=== PATIENT | female | born 1995 | race Caucasian/White ===

== ENCOUNTER 2018-07-17 06:41 | Inpatient (IN) ==
[~2018-07-17 06:41] MED LIST: *HR* Nalbuphine 10 MG/ML AMPUL IVP PRN; Famotidine 20 MG/2 ML VIAL IVP PRN; Metoclopramide 10 MG/2 ML VIAL IVP PRN; Naloxone 0.4 MG/ML INJ IVP PRN; miSOPROStol 25 MCG TABLET PO PRN
--- NOTE | 2018-07-17 07:17 | OB/GYN History & Physical ---
Date of Encounter: 07/17/18 Time of Encounter: 07:15 Assessment and Plan (1) 40 weeks gestation of Current visit: Yes Status: Acute Admit for elective induction of labor at 40w2d Options for induction with Cytotec, cervical srivastava balloon, AROM, and Pitocin all discussed with patient. She would like to proceed with Cytotec at this time. Patient desires a natural labor without IV pain medication or epidural. Prefers to be as mobile as possible. Anticipate (2) NST (non-stress test) reactive Current visit: Yes Status: Acute 140 bpm moderate variability, +15x15 accels, no decels. History of Present Illness Chief complaint: Labor evaluation HPI: Ms. Beasley is a 22 year old female at 40w 2d who presents with complaints of contractions all evening that have progressively gotten closer together and more intense. She denies fluid leakage and vaginal bleeding but does report losing her mucous plug shortly after she arrived. She does report positive movement. Blood type O+ GBS negative Rubella Immune HbSAG negative T. Pall negative Varicella Immune HIV negative Hep C neg Past Med Surg Social Fam HX - Past Medical History Medical history: no medical history Psychiatric history: no psych history - Past Surgical History Additional surgical history: umbilical surgery repair - Social History Smoking Status: Never smoker Smokeless Tobacco Status: No Alcohol use: none Drug use: none Current living situation: Home - Independent, With Family Activity Level: Independent ambulation Recent Out of Country Travel Within the Last 8 Weeks: No Exposure or Possible Exposure to Illness During Travel: No - Family History Mother Family Member Ethnicity: Non- Living Status: Still Living Hx Family Cardiac Disorders: No Hx Family Cancer: No Hx Family Genitourinary Disorders: No Hx Family Endocrine Disorder: No Hx Family Musculoskeletal Disorders: No Hx Family Neuromuscular Disorders: No Hx Family Neurologic Disorders: No Hx Family HEENT Disorders: No Hx Family Autoimmune Disorders: No Hx Family Reproductive Disorders: No Hx Family Psychosocial Disorders: No Hx Family Medical Disorders: No Obstetrical History - Pregnancies : 1 Para: 0 Term: 0 : 0 Ab's: 0 Livin Medications and Allergies Pnv No.95/Ferrous Fum/Folic AC [ Caplet] 1 each PO 07/17/18 [History] Allergy/AdvReac Type Severity Reaction Status Date / Time No Known Allergies Allergy Verified 07/17/18 05:21 Exam - Constitutional Constitutional: well developed, well nourished, no acute distress, average body habitus - HEENT HEENT: Normocephaly - Neck Neck exam: full ROM, normal inspection - Lungs Respiratory exam: CTAB - Cardiovascular Cardiovascular exam: RRR, +S1, +S2 - Breasts Breast: bilateral: normal - Abdomen Abdomen: Present: bowel sounds normal, gravid, non tender - Extremities Extremities exam: full ROM, normal capillary refill, normal inspection - Vulva Vulva: bilateral: normal - Vagina Vagina: Present: normal moisture - Cervix Dilation: 2 (2.5) Effacement: 80 (per RN exam) Results Result Diagrams: 07/17/18 07:35 All other labs normal. - VTE Reasons for not Prescribing Prophylaxis: Treatment not Indicated - Low risk for VTE
[2018-07-17 07:57] LABS: Hematocrit 37.5 % (35.3-44.9); Hemoglobin 12.8 g/dL (11.5-15.4); Red Blood Count 4.13 M/mcL (3.82-4.97)
[2018-07-17 07:58] LABS: Basophils # 0.1 K/mcL (0.0-0.2); Basophils % 0.3 %; Eosinophils # 0.2 K/mcL (0.0-0.6); Eosinophils % 1.3 %; Immature Granulocytes % 0.5 % (0-4); Lymphocytes # 2.5 K/mcL (0.6-4.6); Lymphocytes % 15.1 %; Mean Corpuscular HGB Conc 34.1 g/dL (31.6-35.5); Mean Corpuscular Volume 90.8 fL (83.0-100.0); Mean Platelet Volume 11.2 fL (9.4-12.4); Monocytes # 1.4 K/mcL (0.0-1.3); Monocytes % 8.5 %; Neutrophils # 12.2 K/mcL (1.6-8.9); Platelet Count 274 K/mcL (140-400); Red Cell Distribution Width 13.3 % (11.5-14.5); Segmented Neutrophils % 74.3 %
--- NOTE | 2018-07-17 12:33 | OB Labor Progress Note ---
Date of Encounter: 07/17/18 Time of Encounter: 12:31 Labor Progress Note - Subjective Subjective: Patient resting comfortably in bed. Requesting intracervical srivastava. - Vital Signs Vital Signs: VSS - Cervix Cervix: 2-3/85/-2 posterior - Heart Tones Heart Tones: 155 Cat 1 tacing - [place]: Irregular contractions averaging 3-8 minutes apart - Interventions Interventions: Cook's catheter placed without difficulty; patient and fetus tolerated well. 60cc uterine; 40cc vaginal - Plan Physician notified: No Plan: Continue routine labor management GBS negative Patient requesting low intervention IOL Consider AROM after srivastava displacement Anticipate vaginal delivery POC per consult with Dr Marrero
[2018-07-17] MEDS: Ondansetron 4 MG/2 ML VIAL IVP PRN (12:58)
[2018-07-17] MEDS ORDERED: Ringers Solution, Lactated 1,000 ML ONE (13:41)
[2018-07-17] MEDS ORDERED: Ringers Solution, Lactated 1,000 ML IVC SCH (13:45)
[2018-07-17] MEDS ORDERED: Lidocaine -MPF 2% 5 ML VIAL ONE (13:55)
[2018-07-17] MEDS ORDERED: Epidural Premix (fent/bupiv) 110 ML EP ONE ×2 (14:30→19:28)
--- NOTE | 2018-07-17 14:35 | Anesthesia Procedures ---
Addendum entered and electronically signed by Romulo Marquez CRNA 07/18/18 11:53: Delivery Date: 07/18/18 Infant Delivery Time: 09:39 Original Note: Date of Encounter: 07/17/18 Time of Encounter: 14:08 Procedures: Anesthesia - Epidural/Spinal Patient ID/Chart reviewed: Yes Patient examined: Yes OB Eval: Gestational age: term OB Eval: : 1 OB Eval: Contractions: Non-stressed pattern Consent Obtained: Yes Supplemental Oxygen: None/Room Air Site Prep: Aseptic Technique, Sterile prep and drape, 0.5% Chlorhexidine/Alcohol Patient position: upright Local Anesthetic: Lidocaine 1% Amount of Local Anesthetic used: 2 Touhy Needle Gauge: 18 Touhy Needle Depth (cm): 8 Catheter Depth at Skin (cm): 12 Test Dose (1.5% Lido + Epi): Volume given (mls): 4 Test Dose Result: Negative Loading Dose: Other: 10ml from solution Loading Dose Administered: Thru Catheter Infusion Med: 0.125% Bupivacaine w/ 2 mcg/ml Fentanyl Infusion Rate (mls/hr): [address]: Tegaderm, Tape Interspace Used: L3-L4 Loss of Resistance (LLOYD): Yes (saline) Blood: No CSF: No Paresthesia: No Procedure: vss though out procedure, FHR stable per RN's, L3-4 did not go, moved down to L4-5 to LLOYD. pablito well.
--- NOTE | 2018-07-17 14:37 | Anesthesia Evaluation PreOp ---
Date of Encounter: 07/17/18 Time of Encounter: 14:04 - Past History Planned Operation: Del, G1 induction Cardiac History: Denies any Significant Hx Pulmonary History: Denies Any Significant HX ATOMIC FUEL ASSEMBLER History: Denies Any Significant HX Other Medical History: Denies Any Significant HX Anesthesia History: No Prior Anesthetic Complications, Past Anesthesia (no family hx, had umbilical hernia repair without comp.) Alcohol Use: none Drug use: none Medications and Allergies Pnv No.95/Ferrous Fum/Folic AC [ Caplet] 1 each PO 07/17/18 [History] Allergy/AdvReac Type Severity Reaction Status Date / Time No Known Allergies Allergy Verified 07/17/18 05:21 Anesthesia Results - Labs 07/17/18 07:35 Anesthesia Exam - HEENT Pupil (Motor): Pupils equal Mallampati: II Teeth: Normal Oral Opening: Greater than 3 - ATOMIC FUEL ASSEMBLER LOC: Oriented ATOMIC FUEL ASSEMBLER Motor: Normal RUE, Normal LUE, Normal RLE, Normal LLE, Normal Face ATOMIC FUEL ASSEMBLER Sensory: Normal: RUE, LUE, RLE, LLE, Face - Cardiac Rhythm: Regular Murmur: None - Pulmonary Breath Sounds: bilateral Clear Respiratory Effort: Symmetrical Anesthesia Assess/Plan ASA Score: 2 Level of consciousness: Cooperative, Oriented Anesthetic Plan: General, Spinal, Epidural Monitoring Plan: Standard Monitors Recovery Plan: PACU
--- NOTE | 2018-07-17 16:59 | OB Labor Progress Note ---
Date of Encounter: 07/17/18 Time of Encounter: 16:56 Labor Progress Note - Subjective Subjective: Patient resting comfortably in bed on peanut ball. Epidural in place and providing pain control for patient. - Vital Signs Vital Signs: VSS - Cervix Cervix: 8/90/-1 - Heart Tones Heart Tones: 135 Cat 1 tracing - [place]: Contractions every 3-5 minutes - Interventions Interventions: Cook's catheter removed without difficulty. AROM for moderate amount of clear fluid; patient and fetus tolerated well. - Plan Physician notified: No Plan: Continue routine labor management GBS negative Consider pitocin for augmentation Anticipate vaginal delivery POC per consult with Dr Marrero
--- NOTE | 2018-07-17 19:44 | OB Labor Progress Note ---
Date of Encounter: 07/17/18 Time of Encounter: 19:42 Labor Progress Note - Subjective Subjective: Patient resting in bed comfortably - Vital Signs Vital Signs: VSS - Cervix Cervix: 7/90/-1 - Heart Tones Heart Tones: 135 Cat 2 tracing; variables with occasional contraction; moderate variability - [place]: Contractions every 2 to 3 minutes - Interventions Interventions: FSE placed without difficulty; fetus and patient tolerated well
[2018-07-17] MEDS ORDERED: Oxytocin 20 units/ LR 1000 mL 20 UNIT/1,000 ML BAG IVC SCH (21:15)
[2018-07-17] MEDS ORDERED: Oxytocin 20 units/ LR 1000 mL 20 UNIT/1,000 ML BAG IVC ONE (21:17)
[2018-07-18] MEDS ORDERED: Acetaminophen 325 MG TABLET PO PRN ×2 (01:01→11:15)
[2018-07-18] MEDS ORDERED: *HR* Ropivacaine/PF 0.5% 20 ML VIAL ONE ×2 (01:35→07:38)
--- NOTE | 2018-07-18 01:53 | Anesthesia Progress Note ---
Date of Encounter: 07/18/18 Time of Encounter: 01:41 Anesthesia Note - Note Note: 07/18/18 01:52 BOLUS 6ML 0.5% ROP FOR CONTRACTION DISCOMFORT.
[2018-07-18] MEDS ORDERED: Epidural Premix (fent/bupiv) 110 ML EP ONE (03:01)
[2018-07-18] MEDS ORDERED: *HR* FentaNYL (PF) 100 MCG/2 ML VIAL ONE (07:38)
--- NOTE | 2018-07-18 07:44 | Anesthesia Progress Note ---
Date of Encounter: 07/18/18 Time of Encounter: 07:43 Anesthesia Note - Note Note: 07/18/18 07:43 increased pain with contractions. 9cm. 7ml of 0.5% ropivacaine. 100mcg fentanyl. vss. fhr stable. 07/18/18 07:44
[2018-07-18] MEDS: Ondansetron 4 MG/2 ML VIAL IVP PRN (07:52)
--- NOTE | 2018-07-18 10:24 | OB/GYN Procedure Note ---
Delivery - Delivery Date: 07/18/18 Provider: Naida Kong Intrapartum events: none Delivery induction: srivastava (Cook's catheter ), misoprostol Delivery augmentation: rupture of membranes, pitocin Delivery monitor: external FHT, external uterine Anesthesia: epidural Quantitated Blood Loss: 250 - Infant (s) Infant A Delivery Date: 07/18/18 Delivery Time: 09:39 Presentation: vertex Position: DOT Route of delivery: Gender: Female Viability: Viable at 1 minute: 8 at 5 mins: 9 Shoulder Dystocia: not encountered Placenta: spontaneous - Repair Episiotomy: none Laceration Description: Perineal - 1st Degree, Labial - Complications Delivery complications: none - Disposition Mom disposition: stable in LDR [place] disposition: stable in LDR - Comments Comments: Ms. Beasley is a 22 year old female now [id number] who presented yesterday at 40w2d with contractions and was augmented and progressed to a of a viable girl named Ada [place]. Apgars were 8 at 1 minute and 9 at 5 minutes. When cord pulsation ceased, cord was clamped and cut. Placenta delivered spontaneously and intact; marginal cord insertion noted. Left labial laceration and 1st degree perineal laceration repaired with 2.0 Monocryl. EBL 250 ml. Infant [id number] and . FOB and Maternal Grandmother at BS.
[2018-07-18] MEDS ORDERED: Lanolin 7 G OINT...G. TP PRN (11:15)
[2018-07-18] MEDS ORDERED: Oxytocin 20 units/ LR 1000 mL 20 UNIT/1,000 ML BAG IVC SCH (11:15)
[2018-07-18] MEDS: Ibuprofen 600 MG TABLET PO PRN ×2 (15:04→22:18)
[2018-07-18] MEDS: Benzocaine/Menthol 56 GM AEROSOL SPRAY TP PRN (16:43)
[2018-07-19] MEDS: Ibuprofen 600 MG TABLET PO PRN (08:03)
[2018-07-19] MEDS: Benzocaine/Menthol 56 GM AEROSOL SPRAY TP PRN (08:03)
[2018-07-19 08:32] VITALS: BP 118/76
[2018-07-19] MEDS ORDERED: Prenatal Vit/FA 1 EACH TABLET PO SCH (09:00)
--- NOTE | 2018-07-19 10:00 | Discharge Summary ---
Date of Encounter: 07/19/18 Time of Encounter: 09:57 - Discharge Diagnosis (1) Vaginal delivery Priority: Primary Status: Acute Comments: Continue routine postopartum care discharge home today follow up with Dr. Mirza if 4-6 weeks (2) Breast feeding status of mother Priority: Secondary Status: Acute Comments: support prn - Discharge Medications Prescriptions: New Lanolin [Lansinoh] 1 appl TP Q4HR PRN oint...g. PRN Reason: Ibuprofen [Motrin] 600 mg PO Q6HR PRN #60 tablet PRN Reason: Cramping Benzocaine/Menthol [place] [Dermoplast [place]] 1 appl TP QID PRN aerosol PRN Reason: See Comments Breast Pump [BREAST PUMP] 1 each .ROUTE AD #1 each Docusate [Colace] 100 mg PO BID capsule Mupirocin [Bactroban Oint] 1 appl TP BID tube Continue Pnv No.95/Ferrous Fum/Folic AC [ Caplet] 1 each PO Home Medications: Pnv No.95/Ferrous Fum/Folic AC [ Caplet] 1 each PO 07/17/18 [History] Benzocaine/Menthol [place] [Dermoplast [place]] 1 appl TP QID PRN aerosol 07/19/18 [Rx] Breast Pump [BREAST PUMP] 1 each .ROUTE AD #1 each 07/19/18 [Rx] Docusate [Colace] 100 mg PO BID capsule 07/19/18 [Rx] Ibuprofen [Motrin] 600 mg PO Q6HR PRN #60 tablet 07/19/18 [Rx] Lanolin [Lansinoh] 1 appl TP Q4HR PRN oint...g. 07/19/18 [Rx] Mupirocin [Bactroban Oint] 1 appl TP BID tube 07/19/18 [Rx] Allergies/Adverse Reactions: Allergy/AdvReac Type Severity Reaction Status Date / Time No Known Allergies Allergy Verified 07/17/18 05:21 Data Procedures and tests throughout hospitalization: Laboratory Tests 07/17/18 07:35 WBC 16.4 H RBC 4.13 Hgb 12.8 Hct 37.5 MCV 90.8 MCH 31.0 MCHC 34.1 RDW 13.3 Plt Count 274 MPV 11.2 Immature Gran % 0.5 Seg Neutrophils % 74.3 Lymphocytes % 15.1 Monocytes % 8.5 Eosinophils % 1.3 Basophils % 0.3 Neutrophils # 12.2 H Lymphocytes # 2.5 Monocytes # 1.4 H Eosinophils # 0.2 Basophils # 0.1 Date of admission: 07/17/18 06:41 Primary care physician: Myesha Beal CNP Consults: 07/18/18 11:15 Consult to Body Mechanic [CONS] Routine Comment: Vaginal delivery, consult needed Discharging clinician: Za Ramey Anticipated date of discharge: 07/19/18 - Patient Status Disposition: Home, Self-Care Condition: Good Functional capacity at discharge: independent ambulation - Discharge Instructions Follow Up With: Myesha Beal CNP [Primary Care Provider] - Aparna Mriza MD [Partnered Physician] - - Diet and Activity Activity: increase activity as tolerated Diet: regular diet Hospital Course Reason for admission: active labor Delivery: Episiotomy: none Laceration: 1st degree, other (left labial) Other procedures: none complications: none Discharge diagnosis: IUP at term delivered baby: female (breast feeding) Time Attestation: Total time spent providing and/or coordinating discharge services: Time Spent: Less than 30 minutes Exam - Constitutional Vitals: Temp Pulse Resp BP Pulse Ox 97.6 F 80 16 118/76 96 07/19/18 08:31 07/19/18 08:31 07/19/18 09:24 07/19/18 08:31 07/19/18 08:31 General appearance IM: A&O X 3, pleasant, answers questions appropriately - Respiratory Respiratory exam: Present: CTAB - Cardiovascular Cardiovascular exam IM: Present: RRR - GI/Abdominal GI/Abdominal exam IM: normal bowel sounds - Uterine Tone: Firm Uterus Position: At Umbilicus, Midline - Extremities Exam Extremities exam IM: Present: full ROM, normal capillary refill, normal inspection - Neurological Exam Neurological exam: alert, oriented X3, reflexes normal
== END 2018-07-19 11:32 | disposition home or self-care (01) | DRG 807 ==
LOC: 1NENULAB → 1NENUOBS 07-18 11:17
PROVIDERS: ADMIT Registered Nurse; ATTEND Registered Nurse